=== PATIENT | female | born 1980 | race Caucasian/White ===

== ENCOUNTER 2016-10-05 18:16 | Inpatient (IN) | payer MEDICAID ==
[~2016-10-05] VITALS: Ht 167.6 cm; Wt 103.9 kg
[2016-10-05 19:20] VITALS: BP 121/69; PULSE 87
[2016-10-05 19:30] VITALS: RESP 18
[2016-10-05] MEDS ORDERED: PREN1CAP28 (19:51)
[2016-10-05] MEDS ORDERED: PREN1PAK8 PO (19:51)
[2016-10-05] MEDS ORDERED: VALA500T PO (19:53)
[2016-10-05] MEDS ORDERED: AMOX500C PO (19:53)
[2016-10-05] MEDS ORDERED: VITA100064 PO (19:55)
[2016-10-05] MEDS ORDERED: DIALCAP PO (19:55)
[2016-10-05] MEDS ORDERED: LIDOCAINE HCL 1% 50 ML VIAL INFIL PRN (20:15)
[2016-10-05] MEDS ORDERED: LACTATED RINGER'S 1000 ML BOLUS IV PRN (20:15)
[2016-10-05] MEDS ORDERED: NS 500 ML BOLUS IV PRN (20:15)
[2016-10-05] MEDS ORDERED: NS 1000 ML IV PRN (20:15)
[2016-10-05] MEDS ORDERED: CITRIC ACID-SODIUM CITRATE LIQ 30 ML UDC PO SCH (20:15)
[2016-10-05] MEDS ORDERED: MINERAL OIL 10 ML VIAL TOP PRN (20:15)
[2016-10-05] MEDS ORDERED: LIDOCAINE HCL 1% 50 ML VIAL I-DERMAL PRN (20:15)
[2016-10-05] MEDS ORDERED: ONDANSETRON HCL 4 MG/2 ML VIAL IV PRN (20:15)
[2016-10-05] MEDS ORDERED: DINOPROSTONE 10 MG INSERT-LEAVE FOR 12 HOURS VAGINAL ONE (20:15)
[2016-10-05] MEDS ORDERED: ZOLPIDEM TARTRATE 10 MG TAB PO PRN (20:15)
[2016-10-05] MEDS ORDERED: OXYTOCIN 30 UNITS 500ML PREMIX IV ONE (20:15)
[2016-10-05] MEDS: LACTATED RINGER'S 1000 ML IV SCH (20:35)
[2016-10-05 21:10] LABS: AUTOMATED NEUTROPHIL # 7.5 TH/MM3 (1.8-7.7); BASOPHIL % 0.4 % (0.0-2.0); EOSINOPHIL # 0.1 TH/MM3 (0-0.4); EOSINOPHIL % 0.5 % (0.0-4.0); HEMO FLAGS DIFF FINAL; LYMPH % 24.2 % (9.0-44.0); LYMPHOCYTE # 2.7 TH/MM3 (1.0-4.8); MEAN CELL VOLUME 85.7 FL (80.0-100.0); MEAN CORPUSCULAR HEMOGLOBIN 29.4 PG (27.0-34.0); MEAN CORPUSCULAR HGB CONC 34.3 % (32.0-36.0); MONO % 8.3 % (0.0-8.0); NEUT % 66.6 % (16.0-70.0); PLATELET COUNT 203 TH/MM3 (150-450); RED BLOOD COUNT 4.08 MIL/MM3 (4.00-5.30); RED CELL DISTRIBUTION WIDTH 14.6 % (11.6-17.2); WHITE BLOOD COUNT 11.2 TH/MM3 (4.0-11.0)
[2016-10-05 21:20] LABS: BACTERIA, URINE OCC /hpf; BLOOD, URINE NEG (NEG); COMMENT (UR) CULT NOT INDICATED; CULTURE IF INDICATED CULT NOT INDICATED; GLUCOSE,URINE NEG (NEG); KETONE, URINE NEG (NEG); NITRITE,URINE NEG (NEG); PH, URINE 6.5 (5.0-8.5); SQUAMOUS EPITHELIAL CELL URINE <1 /hpf (0-5); URINE COLOR LIGHT-YELLOW (YELLW/STRAW)
[2016-10-05 23:30] VITALS: RESP 18
[2016-10-06] VITALS (41 sets, daily range): BP systolic 92–127; BP diastolic 33–94; PULSE 56–108; RESP 18–20; TEMP 97.9–99
--- NOTE | 2016-10-06 08:33 | PD.LABORPN ---
Subjective Subjective 41 wks induction, s/p cervidil last night, GBS+ Objective Vital Signs Vital Signs Date Time Temp Pulse Resp B/P Pulse Ox O2 Delivery O2 Flow Rate FiO2 10/06/16 05:26 18 10/06/16 05:26 97.9 10/06/16 05:25 80 92/33 Objective Pelvic Exam: Cervix: [-] Dilatation: [-] 1cm Effacement: [-] 50% Station: [-] -3 Presentation: [-] vtx Membranes: [intact or ruptured] arom clear Uterine Contractions: [-] rare FHT's: Category: [-] 1 Baseline: [-] Reactive: [-] R Variability: [-] good Decels: [-] Assessment/Plan Problem List: (1) state, incidental (2) Post-dates Assessment and Plan IUP at 41 wks, s/p cervidil, arom for pitocin , epidural prn, pcn anticipate Elaine Gonzales MD Oct 06, 2016 08:32
[2016-10-06] MEDS ORDERED: OXYTOCIN 30 UNITS-500ML PREMIX 500 ML IV SCH (08:45)
[2016-10-06] MEDS ORDERED: PENICILLIN G POTASSIUM INJ 5,000,000 UNITS in SODIUM CHLORIDE 0.9% INJ 100 ML IV ONE (09:00)
[2016-10-06] MEDS: LACTATED RINGER'S 1000 ML IV SCH ×3 (09:01→21:03)
--- NOTE | 2016-10-06 09:43 | MH ---
cc: RODRIGO LEONARD MD DATE OF ADMISSION: 10/05/2016 HISTORY OF PRESENT ILLNESS She is a 36-year-old 1, para 0, intrauterine at 40 and 6/7 weeks. care has been with [facility]. She is group B strep positive. Biophysical profile was 8/8. LEONIDAS was 6. OBSTETRICAL HISTORY She is para 0. 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 PAST MEDICAL HISTORY She denies hypertension, diabetes or asthma. PAST SURGICAL HISTORY She denies. SOCIAL HISTORY She denies toxic habits. MEDICATIONS She takes: 1. vitamins. 2. Vitamin D. 3. Valtrex suppression. ALLERGIES She has no known drug allergies. PHYSICAL EXAMINATION VITAL SIGNS: On physical exam her vital signs are stable. She is afebrile. Blood pressure is 100/60. She is 226 pounds. HEAD, HEART, CHEST, LUNGS EXAMS: Are within normal limits. ABDOMEN: Abdomen is soft, nontender, gravid. PELVIC: Cervix is fingertip, 50%. ASSESSMENT/PLAN She is a 36-year-old, 1, para 0, intrauterine at 40 and 6/7 weeks, for induction due to post dates and borderline oligohydramnios. She will be admitted for Cervidil ripening followed by Pitocin with penicillin prophylaxis in labor. All of her questions have been answered. Risks, benefits, alternatives have been explained. MD SHANNEN Cunha/MANISHL /10:44 AM /9:40 AM
[2016-10-06] MEDS: PENICILLIN G POTASSIUM INJ 2,500,000 UNITS in SODIUM CHLORIDE 0.9% INJ 100 ML IV SCH ×3 (12:33→21:02)
[2016-10-06] MEDS ORDERED: fentaNYL 2MCG-BUPIV 0.125% INJ 100 ML ONE (20:42)
[2016-10-07] VITALS (29 sets, daily range): BP systolic 91–136; BP diastolic 31–92; PULSE 53–281; RESP 17–18; TEMP 97.8–98.6; O2SAT 96
[2016-10-07] MEDS: PENICILLIN G POTASSIUM INJ 2,500,000 UNITS in SODIUM CHLORIDE 0.9% INJ 100 ML IV SCH ×3 (01:00→09:02)
[2016-10-07] MEDS: LACTATED RINGER'S 1000 ML IV SCH ×3 (01:01→08:35)
[2016-10-07] MEDS ORDERED: fentaNYL 2MCG-BUPIV 0.125% INJ 100 ML ONE (03:08)
[2016-10-07] MEDS ORDERED: DO NOT ADMINISTER ANTICOAGULANTS XX PRN (03:30)
[2016-10-07] MEDS ORDERED: ePHEDrine/NS 50 MG/5 ML SYR IV PRN (03:30)
[2016-10-07] MEDS ORDERED: NO SYSTEM NARCOTICS XX PRN (03:30)
[2016-10-07] MEDS ORDERED: fentaNYL 2MCG-BUPIV 0.125% INJ 100 ML EPIDURAL SCH (03:30)
--- NOTE | 2016-10-07 07:47 | PD.LABORPN ---
Subjective Subjective comfortable with epidural. Had quiet night. Objective Vital Signs Vital Signs Date Time Temp Pulse Resp B/P Pulse Ox O2 Delivery O2 Flow Rate FiO2 10/07/16 06:43 18 10/07/16 06:30 78 116/68 10/07/16 06:15 18 10/07/16 06:00 102 10/07/16 06:00 108/69 10/07/16 05:45 18 10/07/16 05:30 96 106/73 10/07/16 03:00 18 10/07/16 02:45 99/46 10/07/16 02:45 61 10/07/16 02:30 58 18 99/49 10/07/16 02:15 54 101/50 10/07/16 02:00 62 102/45 10/07/16 02:00 18 10/07/16 01:45 53 10/07/16 01:45 106/57 10/07/16 01:30 98.3 60 18 107/54 10/07/16 01:15 57 105/52 10/07/16 01:01 63 91/31 10/07/16 00:57 18 10/07/16 00:56 61 105/52 10/07/16 00:30 18 10/07/16 00:29 108/51 10/07/16 00:29 65 Objective last night I placed IUPC and was 4/90/-3 with infant not well applied. I did not manage her labor but returned bridal sales consultant today. She is afebrile and in good spirits She is complete/applied to effaced cervix and -2 which is a very significant descent no caput. Questionable asynclitism EFW 7 1/2 pelvis seems clinically adequate strip is reassuring at this bon Variability: [-] Decels: [-] Assessment/Plan Problem List: (1) state, incidental (2) Post-dates Assessment and Plan Spoke with nurse Yepez and Dr. Gonzales whom I am asking to cover while I am in surgery. I think she can labor this baby down with aggressive pitocin augmentation. If strip deteriorates or if lack of descent in two hours then section indicated. Cautiously optimistic. Discussed in detail with patient and family. Claudette Caballero MD Oct 07, 2016 07:47
--- NOTE | 2016-10-07 09:29 | PD.LABORPN ---
Subjective Subjective comfortable stro[ reactove exam suggests significant descent with resolution of mild asynclitism no evidence of infection need patience anticipate Objective Vital Signs Vital Signs Date Time Temp Pulse Resp B/P Pulse Ox O2 Delivery O2 Flow Rate FiO2 10/07/16 08:01 61 108/56 10/07/16 07:30 74 112/80 10/07/16 07:04 98.0 10/07/16 07:03 18 10/07/16 07:00 71 114/64 10/07/16 06:43 18 10/07/16 06:30 78 116/68 10/07/16 06:15 18 10/07/16 06:00 102 10/07/16 06:00 108/69 10/07/16 05:45 18 10/07/16 05:30 96 106/73 10/07/16 03:00 18 10/07/16 02:45 99/46 10/07/16 02:45 61 10/07/16 02:30 58 18 99/49 10/07/16 02:15 54 101/50 10/07/16 02:00 62 102/45 10/07/16 02:00 18 10/07/16 01:45 53 10/07/16 01:45 106/57 10/07/16 01:30 98.3 60 18 107/54 Objective Pelvic Exam: Cervix: [-] Dilatation: [-] Effacement: [-] Station: [-] Presentation: [-] Membranes: [intact or ruptured] Uterine Contractions: [-] FHT's: Category: [-] Baseline: [-] Reactive: [-] Variability: [-] Decels: [-] Assessment/Plan Problem List: (1) state, incidental (2) Post-dates Claudette Caballero MD Oct 07, 2016 09:28
[2016-10-07] MEDS ORDERED: OXYTOCIN 10 UNIT/ML AMP ONE (11:47)
[2016-10-07] MEDS ORDERED: ceFAZolin INJ 1,000 MG VIAL ONE (11:47)
[2016-10-07] MEDS ORDERED: EPIDURAL-NO SYSTEMIC NARCOTICS XX PRN (12:30)
[2016-10-07] MEDS ORDERED: EPIDURAL-DIPHENHYDRAMINE HCL 50 MG CAP PO PRN (12:30)
[2016-10-07] MEDS ORDERED: EPIDURAL-DIPHENHYDRAMINE HCL 50 MG/ML VIAL IV PUSH PRN (12:30)
[2016-10-07] MEDS ORDERED: EPIDURAL-NALOXONE HCL 0.4 MG/ML AMP IV PRN (12:30)
[2016-10-07] MEDS ORDERED: EPIDURAL-DO NOT ADMINISTER ANTICOAGULANTS XX PRN (12:30)
[2016-10-07] MEDS ORDERED: MORPHINE SULFATE PF 5 MG/10 ML VIAL ONE (12:58)
[2016-10-07] MEDS ORDERED: OXYTOCIN 30 UNITS-500ML PREMIX 500 ML IV ONE (13:00)
[2016-10-07] MEDS ORDERED: oxyCODONE/ACETAMINOPHEN 5 MG/325 MG TAB PO PRN ×2 (13:00)
[2016-10-07] MEDS ORDERED: SODIUM CHLORIDE 0.9% FLUSH 5 ML FLUSH IV PRN (13:00)
[2016-10-07] MEDS ORDERED: DOCUSATE SODIUM 50 MG/SENNA 8.6 MG TAB PO PRN (13:00)
[2016-10-07] MEDS ORDERED: ZOLPIDEM TARTRATE 5 MG TAB PO PRN (13:00)
[2016-10-07] MEDS ORDERED: ACETAMINOPHEN 325 MG TAB PO PRN (13:00)
[2016-10-07] MEDS ORDERED: SIMETHICONE 80 MG CHEWABLE TAB PO PRN (13:00)
[2016-10-07] MEDS ORDERED: ONDANSETRON HCL 4 MG/2 ML VIAL IV PUSH PRN (13:00)
[2016-10-07] MEDS ORDERED: ACETAMINOPHEN 1000 MG/100 ML VIAL IV ONE (13:30)
[2016-10-07] MEDS ORDERED: HYDROmorphone HCL PF 2 MG/ML VIAL ONE (13:56)
[2016-10-07] MEDS ORDERED: KETOROLAC TROMETHAMINE 30 MG/ML (IVP) VIAL ONE (14:06)
[2016-10-07] MEDS ORDERED: OXYTOCIN 30 UNITS-500ML PREMIX 500 ML ONE (14:15)
[2016-10-07] MEDS ORDERED: KETOROLAC TROMETHAMINE 30 MG/ML (IVP) VIAL IV PUSH ONE (15:30)
[2016-10-07] MEDS ORDERED: HYDROmorphone HCL PF 1 MG/ML VIAL IV PUSH PRN (15:30)
[2016-10-07] MEDS ORDERED: HYDROmorphone HCL PF 1 MG/ML VIAL IV PUSH ONE (15:30)
[2016-10-07] MEDS ORDERED: LACTATED RINGER'S 1000 ML INJ 1,000 ML IV SCH (17:51)
[2016-10-07] MEDS ORDERED: OXYTOCIN 30 UNITS-500ML PREMIX 500 ML IV PRN (23:00)
[2016-10-08 01:40] VITALS: BP 100/62; PULSE 88; RESP 20; TEMP 97.9
[2016-10-08 05:00] VITALS: BP 114/70; PULSE 108; RESP 18; TEMP 98.9; O2SAT 97
[2016-10-08] MEDS: IBUPROFEN 600 MG TAB PO PRN ×3 (05:46→21:14)
[2016-10-08 07:30] VITALS: BP 122/59; PULSE 86; RESP 18; TEMP 98.1
[2016-10-08] MEDS: SODIUM CHLORIDE 0.9% FLUSH 5 ML FLUSH IV SCH ×2 (08:00→21:00)
--- NOTE | 2016-10-08 09:13 | HHI.OB ---
Subjective Post Operative Day: 1 Remarks ambulating and voiding < 24 hours post section no complaints Objective Vitals/I&O Vital Signs Date Time Temp Pulse Resp B/P Pulse Ox O2 Delivery O2 Flow Rate FiO2 10/08/16 07:30 98.1 86 18 122/59 10/08/16 05:00 98.9 108 18 114/70 97 10/08/16 01:40 97.9 88 20 100/62 10/07/16 19:20 97.8 67 17 101/57 96 10/07/16 11:30 168 119/63 10/07/16 11:07 98.6 10/07/16 11:02 104 105/82 10/07/16 11:00 281 136/92 10/07/16 10:32 67 123/80 Result Diagram: 10/05/161999 Objective Remarks GENERAL: Well-nourished, well-developed patient. CARDIOVASCULAR: Regular rate and rhythm without murmurs, gallops, or rubs. RESPIRATORY: Breath sounds equal bilaterally. No accessory muscle use. ABDOMEN/GI: Abdomen soft, non-tender, bowel sounds present. Incision: Clean, dry and intact. It is under pannus and should be watched Fundus: Firm, non-tender at umbilicus. GENITOURINARY: Light to moderate bleeding. EXTREMITIES: No cyanosis or edema, non-tender, without signs of DVT. Medications and IVs Current Medications Medications (Trade) Dose Ordered Sig/Cresencio Route Start Time Stop Time Status Last Admin (Lr 1000 ml Inj) 1,000 ml @ 100 mls/hr Q10H IV 10/07/16 17:51 10/08/16 13:50 (NS Flush) 2 ml BID IV 10/07/16 21:00 (NS Flush) 2 ml UNSCH PRN IV 10/07/16 13:00 (Mylicon Chew) 80 mg QID PRN PO 10/07/16 13:00 (Tylenol) 650 mg Q6H PRN PO 10/07/16 13:00 (Motrin) 600 mg Q6H PRN PO 10/07/16 13:00 10/08/16 05:46 (Percocet 5-325 Mg) 1 tab Q4H PRN PO 10/07/16 13:00 (Percocet 5-325 Mg) 2 tab Q4H PRN PO 10/07/16 13:00 (Valarie-Colace) 2 tab Q12H PRN PO 10/07/16 13:00 10/08/16 05:46 (Ambien) 5 mg HS PRN PO 10/07/16 13:00 (M-M-R Ii Inj) 0.5 ml ONCE ONCE SQ 10/08/16 16:00 10/08/16 16:01 (Boostrix Inj) 0.5 ml ONCE ONCE IM 10/08/16 16:00 10/08/16 16:01 (Zofran Inj) 4 mg Q6H PRN IV PUSH 10/07/16 13:00 10/07/16 17:48 Miscellaneous Information NO SYSTEMIC NARCOTICS TO BE GIVEN FO... UNSCH PRN XX 10/07/16 12:30 10/08/16 12:29 (Narcan Inj) 0.4 mg UNSCH PRN IV 10/07/16 12:30 10/08/16 12:29 (Benadryl Inj) 25 mg Q6H PRN IV PUSH 10/07/16 12:30 10/08/16 12:29 10/07/16 17:48 (Benadryl) 50 mg Q6H PRN PO 10/07/16 12:30 10/08/16 12:29 Miscellaneous Information ALL NURSING DEPARTMENTS UNSCH PRN XX 10/07/16 12:30 10/08/16 12:29 Assessment/Plan Problem List: (1) state, incidental (2) Post-dates Assessment and Plan POD 1 doing very well ghassan out on POD 3 Claudette Lara MD Oct 08, 2016 09:13
[2016-10-08 12:40] LABS: AUTOMATED NEUTROPHIL # 14.9 TH/MM3 (1.8-7.7); BASOPHIL % 0.1 % (0.0-2.0); EOSINOPHIL % 0.2 % (0.0-4.0); HEMATOCRIT 28.7 % (35.0-46.0); HEMO FLAGS DIFF FINAL; LYMPH % 7.1 % (9.0-44.0); LYMPHOCYTE # 1.3 TH/MM3 (1.0-4.8); MEAN CELL VOLUME 86.6 FL (80.0-100.0); MEAN CORPUSCULAR HEMOGLOBIN 29.3 PG (27.0-34.0); MEAN CORPUSCULAR HGB CONC 33.9 % (32.0-36.0); MONO % 7.7 % (0.0-8.0); NEUT % 84.9 % (16.0-70.0); PLATELET COUNT 149 TH/MM3 (150-450); RED BLOOD COUNT 3.31 MIL/MM3 (4.00-5.30); RED CELL DISTRIBUTION WIDTH 14.8 % (11.6-17.2); WHITE BLOOD COUNT 17.6 TH/MM3 (4.0-11.0)
[2016-10-08] MEDS ORDERED: DIPHTH/TETANUS/ACEL PERTUSSIS (BOOSTER) 0.5 ML VIAL/PFS IM ONE (16:00)
[2016-10-08] MEDS ORDERED: MEASLES, MUMPS, RUBELLA VACCINE 0.5 ML VIAL SQ ONE (16:00)
[2016-10-09] MEDS: IBUPROFEN 600 MG TAB PO PRN ×3 (05:47→18:04)
--- NOTE | 2016-10-09 10:22 | HHI.OB ---
Subjective Post Operative Day: 2 Remarks Doing well baby circumcised concerned about baby's spitting up--questions about tube for baby's gastric contents Objective Result Diagram: 10/08/16 1201 Objective Remarks GENERAL: Well-nourished, well-developed patient. CARDIOVASCULAR: Regular rate and rhythm without murmurs, gallops, or rubs. RESPIRATORY: Breath sounds equal bilaterally. No accessory muscle use. ABDOMEN/GI: Abdomen soft, non-tender, bowel sounds present. Incision: Clean, dry and intact. It is under pannus and should be watched Fundus: Firm, non-tender at umbilicus. GENITOURINARY: Light to moderate bleeding. EXTREMITIES: No cyanosis or edema, non-tender, without signs of DVT. Medications and IVs Current Medications Medications (Trade) Dose Ordered Sig/Cresencio Route Start Time Stop Time Status Last Admin (NS Flush) 2 ml BID IV 10/07/16 21:00 (NS Flush) 2 ml UNSCH PRN IV 10/07/16 13:00 (Mylicon Chew) 80 mg QID PRN PO 10/07/16 13:00 (Tylenol) 650 mg Q6H PRN PO 10/07/16 13:00 (Motrin) 600 mg Q6H PRN PO 10/07/16 13:00 10/09/16 05:47 (Percocet 5-325 Mg) 1 tab Q4H PRN PO 10/07/16 13:00 (Percocet 5-325 Mg) 2 tab Q4H PRN PO 10/07/16 13:00 (Valarie-Colace) 2 tab Q12H PRN PO 10/07/16 13:00 10/08/16 05:46 (Ambien) 5 mg HS PRN PO 10/07/16 13:00 (Zofran Inj) 4 mg Q6H PRN IV PUSH 10/07/16 13:00 10/07/16 17:48 Assessment/Plan Problem List: (1) state, incidental (2) Post-dates Assessment and Plan POD 2 doing very well ghassan out on POD 3 Claudette Branch MD Oct 09, 2016 10:22
[2016-10-09] MEDS ORDERED: OXYC1TAB63 PO (10:24)
--- NOTE | 2016-10-09 10:25 | HHI.DCPOC ---
Discharge Care Plan Report Symptoms to Your Doctor -Temperate above 100.5 degrees -Redness, of incision or excessive or foul smelling drainage -Unusual pain or calf pain -Increased vaginal bleeding -Painful or difficulty urinating -Feelings of extreme sadness or anxiety after 2 weeks Goals to Promote Your Health * To prevent worsening of your condition and complications * To maintain your health at the optimal level Directions to Meet Your Goals Take your medications as prescribed Follow your dietary instruction Follow activity as directed Ensure plenty of rest for recovery Drink fluids for hydration Keep your appointments as scheduled Take your immunizations and boosters as scheduled If your symptoms worsen call your PCP, if no PCP go to Urgent Care Center or Emergency Room Smoking is Dangerous to Your Health. Avoid second hand smoke Call the 24-hour crisis hotline for domestic abuse at Claudette Caballero MD Oct 09, 2016 10:25
[2016-10-10] MEDS: IBUPROFEN 600 MG TAB PO PRN ×2 (00:12→06:05)
[2016-10-10] MEDS ORDERED: SENN1TAB PO (12:32)
[2016-10-10] MEDS ORDERED: IBUP-232 PO (12:32)
--- NOTE | 2016-10-10 12:32 | HHI.OB ---
Subjective Post Operative Day: 3 Objective Result Diagram: 10/08/16 1201 Objective Remarks GENERAL: Well-nourished, well-developed patient. CARDIOVASCULAR: Regular rate and rhythm without murmurs, gallops, or rubs. RESPIRATORY: Breath sounds equal bilaterally. No accessory muscle use. ABDOMEN/GI: Abdomen soft, non-tender, bowel sounds present. Incision: Clean, dry and intact. steri-strips in place. Fundus: Firm, non-tender at umbilicus. GENITOURINARY: Light to moderate bleeding. EXTREMITIES: No cyanosis or edema, non-tender, without signs of DVT. Medications and IVs Current Medications Medications (Trade) Dose Ordered Sig/Cresencio Route Start Time Stop Time Status Last Admin (NS Flush) 2 ml BID IV 10/07/16 21:00 (NS Flush) 2 ml UNSCH PRN IV 10/07/16 13:00 (Mylicon Chew) 80 mg QID PRN PO 10/07/16 13:00 (Tylenol) 650 mg Q6H PRN PO 10/07/16 13:00 (Motrin) 600 mg Q6H PRN PO 10/07/16 13:00 10/10/16 06:05 (Percocet 5-325 Mg) 1 tab Q4H PRN PO 10/07/16 13:00 (Percocet 5-325 Mg) 2 tab Q4H PRN PO 10/07/16 13:00 (Valarie-Colace) 2 tab Q12H PRN PO 10/07/16 13:00 10/08/16 05:46 (Ambien) 5 mg HS PRN PO 10/07/16 13:00 (Zofran Inj) 4 mg Q6H PRN IV PUSH 10/07/16 13:00 10/07/16 17:48 Assessment/Plan Problem List: (1) state, incidental (2) Post-dates Assessment and Plan POD#3 meeting all criteria d/c to home today office f/u 1-2 wks Discharge Planning routine Joan Terry MD Oct 10, 2016 12:32
[2016-10-10] MEDS ORDERED: OXYC1TAB63 PO (12:39)
--- NOTE | 2016-10-12 20:21 | MP ---
cc: RODRIGO LEONARD MD DATE OF SURGERY 10/07/2016 PREOPERATIVE DIAGNOSIS Intrauterine at 41 weeks, arrest of descent. POSTOPERATIVE DIAGNOSIS Intrauterine at 41 weeks, arrest of descent. PROCEDURE Primary lower segment transverse section via Pfannenstiel skin incision. FINDINGS Live male delivered vertex presentation, Apgars 4 at one minute and 9 at five minutes. weight was 7 pounds 15 ounces. Meconium was noted. FLUIDS 1500 cc crystalloid. ESTIMATED BLOOD LOSS 800 cc. URINE OUTPUT 200 cc, damaso, at the end of the procedure. ANESTHESIA Epidural. PROCEDURE DETAILS The patient was taken to the operating room where epidural anesthesia was found to be adequate. She was prepped and draped in the normal sterile fashion in the dorsal supine position with a leftward tilt. A Pfannenstiel skin incision was made with a scalpel and carried down to the underlying layer of fascia. The fascia was nicked in the midline. The incision was extended laterally with curved Dias scissors. Attention was turned to the inferior aspect of the incision which was grasped with Jade clamps, elevated and the rectus muscles dissected off sharply. Attention was turned to the superior aspect of the incision which was grasped with Jade clamps, elevated and the rectus muscles dissected off sharply. The rectus muscles were identified and . The peritoneum was identified, grasped high between two Randa clamps, elevated and entered sharply with Metzenbaum scissors. This incision was extended superiorly and inferiorly with good visualization of the bladder. The bladder was noted to be full. The bladder blade was inserted. Vesicouterine peritoneum was identified, grasped with pickups, entered sharply with Metzenbaum scissors. This incision was extended laterally and the bladder flap created digitally. The lower uterine segment was incised in a transverse fashion. The vertex was then delivered. The oral and nasopharynx were bulb suctioned with a syringe. There was no nuchal cord. The shoulders were delivered atraumatically. There was thick meconium noted behind the fetus. The cord was clamped x2 and cut. The infant was handed off to awaiting nurse. The uterus was cleared of all clots and debris. The uterine incision was repaired in two layers with one Vicryl. Hemostasis was assured. There was some bleeding noted from the right lower aspect of the incision so the uterus was exteriorized and the [id number] sutures were placed for hemostasis. The uterus was replaced back into the abdomen. The gutters were cleared of all clots and debris. The fascia was reapproximated in a running fashion with 0 Vicryl. The subcutaneous tissue was reapproximated to close the space with two interrupted sutures of 3-0 chromic. The skin was closed with ghassan. A pressure dressing was applied. The patient was transferred to recovery room in stable condition. The sponge, lap, needle and instrument counts were correct x3. MD SHANNEN Cunha/BERNARD /12:56 PM /8:13 PM
== END 2016-10-10 13:04 | disposition home or self-care (01) | DRG 766 ==
LOC: H2EB 18:16 → H1EA 10-07 15:04
PROVIDERS: ADMIT Obstetrics & Gynecology; ATTEND Obstetrics & Gynecology
PROC: 00HU33Z Insertion of Infusion Device into Spinal Canal, Percutaneous Approach (ICD-10-PCS; 2016-10-06)
PROC: 3E0R3CZ (ICD-10-PCS; 2016-10-06)
PROC: 10907ZC Drainage of Amniotic Fluid, Therapeutic from Products of Conception, Via Natural or Artificial Opening (ICD-10-PCS; 2016-10-06)
PROC: 10D00Z1 Extraction of Products of Conception, Low, Open Approach (ICD-10-PCS; principal; 2016-10-07)
DX: O62.1 Secondary uterine inertia (principal); O48.0 Post-term pregnancy; O09.513 Supervision of elderly primigravida, third trimester; O99.824 Streptococcus B carrier state complicating childbirth; Z3A.41 41 weeks gestation of pregnancy; O77.0 Labor and delivery complicated by meconium in amniotic fluid; Z37.0 Single live birth
CPT/HCPCS: 81001; 85025; 86900; 86901; 88307; 90715; J0131; J0690; J1170; J1200; J1885; J2274; J2405; J2540; J2590; J3010; J7120